=== PATIENT | female | born 1990 | race Caucasian/White ===

== ENCOUNTER 2018-07-28 13:46 | Emergency (ER) | payer OTHER ==
[2018-07-28 13:56] VITALS: BP 113/65; PULSE 77; TEMP 98.1; BMI 27.4
--- NOTE | 2018-07-28 14:49 | PDOC ---
History of Present Illness - General Chief Complaint: Chest Pain Stated Complaint: Shortness of Breath Time Seen by Provider: 07/28/18 14:49 History Source: Patient Exam Limitations: No Limitations - History of Present Illness Initial Comments: 07/28/18 16:16 CHIEF COMPLAINT: Chest pain HISTORY OF PRESENT ILLNESS: This is a 27-year-old female with a history of anxiety/panic disorder presents for evaluation of vomiting and chest pain. Patient began to feel anxious while at work and developed the symptoms, which have since resolved. She reports that these are her usual panic attack symptoms. She is not currently taking any medications for anxiety. The patient denies family history of cardiac disease or early , family history of PE/DVT. She denies hormonal contraceptive use, recent travel/ immobilization, recent surgery, and calf pain/swelling. Vital signs on arrival are within normal limits. EKG obtained in triage shows normal sinus rhythm without ischemic changes. REVIEW OF SYSTEMS: GENERAL/CONSTITUTIONAL: No fever or chills. No weakness. No weight change. HEAD, EYES, EARS, NOSE AND THROAT: No change in vision. No ear pain or discharge. No sore throat. CARDIOVASCULAR: Chest pain/tightness, resolved. RESPIRATORY: No cough, wheezing, or shortness of breath. GASTROINTESTINAL: No nausea, vomiting, diarrhea or constipation. GENITOURINARY: No dysuria, frequency, or change in urination. MUSCULOSKELETAL: No joint or muscle swelling or pain. No neck or back pain. SKIN: No rash or easy bruising. NEUROLOGIC: No headache, vertigo, loss of consciousness, or loss of sensation. PSYCHIATRIC: See HPI. ENDOCRINE: No increased thirst. No abnormal weight change. HEMATOLOGIC/LYMPHATIC: No anemia, easy bleeding, or history of blood clots. ALLERGIC/IMMUNOLOGIC: No hives or skin allergy. No latex allergy. PHYSICAL EXAM: GENERAL: The patient is awake, alert, and fully oriented, in no acute distress. HEAD: Normal with no signs of trauma. ENT: Pupils equal, round and reactive to light, extraocular movements intact, sclera anicteric, conjunctiva clear. Neck supple. LUNGS: Clear to auscultation bilaterally. Normal excursion. No respiratory distress or use of accessory muscles. CV: RRR, S1/S2, no MRG. Cap refill < 2 sec. ABDOMEN: Soft, non-distended, non-tender. EXTREMITIES: Normal range of motion, no edema. NEUROLOGICAL: Normal speech, normal gait. CN II-XII grossly intact. PSYCH: Normal mood, normal affect. SKIN: Warm, dry, normal turgor, no rashes or lesions noted. Past History - Past Medical History Allergies/Adverse Reactions: Allergies Allergy/AdvReac Type Severity Reaction Status Date / Time Sulfa (Sulfonamide Allergy Severe Difficulty Verified 07/28/18 13:54 Antibiotics) Breathing Home Medications: Ambulatory Orders NK [No Known Home Medication] 07/28/18 COPD: No - Immunization History Immunization Up to Date: Yes - Suicide/Smoking/Psychosocial Hx Smoking History: Never smoked Hx Alcohol Use: No Drug/Substance Use Hx: No *Physical Exam - Vital Signs Last Vital Signs Temp Pulse Resp BP Pulse Ox 98.1 F 77 18 113/65 100 07/28/18 13:54 07/28/18 13:54 07/28/18 13:54 07/28/18 13:54 07/28/18 13:54 Moderate Sedation - Procedure Monitoring Vital Signs: Procedure Monitoring Vital Signs Temperature 98.1 F 07/28/18 13:54 Pulse Rate 77 07/28/18 13:54 Respiratory Rate 18 07/28/18 13:54 Blood Pressure 113/65 07/28/18 13:54 O2 Sat by Pulse Oximetry (%) 100 07/28/18 13:54 Medical Decision Making - Medical Decision Making 07/28/18 16:18 A/P: 27-year-old female with chest pain and vomiting, which she attributes to anxiety; her usual symptoms of panic attack. Symptoms resolved. Normal EKG. No PE risk factors. Given Xanax 0.25 mg po. Offered further testing including chest x-ray and lab work, but patient declines. She agrees to follow up with psychiatrist. Return precautions reviewed. *DC/Admit/Observation/Transfer Diagnosis at time of Disposition: Anxiety - Discharge Dispostion Disposition: HOME Condition at time of disposition: Improved Decision to Admit order: No - Referrals Referrals: Sal Khan MD [Staff Physician] - - Patient Instructions Printed Discharge Instructions: DI for Panic Disorder Additional Instructions: -Follow up with a psychiatrist for further treatment -Return for re-evaluation if you experience recurrent chest pain or any other concerning symptoms - Post Discharge Activity Forms/Work/School Notes: Back to Work
[2018-07-28] MEDS ORDERED: ALPRAZolam 0.25 MG TABLET PO ONE (14:55)
[2018-07-28] MEDS ORDERED: ALPRAZolam 0.25 MG TABLET ONE (14:58)
--- NOTE | 2018-09-03 11:46 | EKG ---
Test Reason : Blood Pressure : / mmHG Vent. Rate : 075 BPM Atrial Rate : 075 BPM P-R Int : 168 ms QRS Dur : 090 ms QT Int : 390 ms P-R-T Axes : 073 088 064 degrees QTc Int : 435 ms NORMAL SINUS RHYTHM NORMAL ECG NO PREVIOUS ECGS AVAILABLE Confirmed by FEI DELGADO MD ([id number]) on 09/03/2018 11:46:21 AM Referred By: Confirmed By:FEI DELGADO MD
== END 2018-07-28 15:40 | disposition home or self-care (01) ==
LOC: JER 13:46
DX: F41.9 Anxiety disorder, unspecified (principal)
CPT/HCPCS: 93005; 93010; 99281-25